=== PATIENT | male | born 1955 | race Caucasian/White ===

== ENCOUNTER 2019-08-28 12:25 | Day surgery (SDC) | payer MEDICARE ==
[2019-08-28] MEDS ORDERED: Lidocaine 1% PF 5 ML VIAL ONE (12:50)
[2019-08-28] MEDS ORDERED: Sodium Bicarbonate 2.5 MEQ/5 ML VIAL ONE (12:50)
--- NOTE | 2019-08-28 16:08 | ULT ---
Exam: Ultrasound guided fine-needle aspiration of the thyroid gland COMPARISON: 08/01/2019 FINDINGS: Successful ultrasound-guided fine-needle aspiration of the left thyroid lobe. Total 4 fine-needle asp iration was performed with a 25-gauge needle. No immediate or postprocedure complications TECHNIQUE: Consent obtained to perform a left thyroid lobe fine-needle aspiration. A solid nodule in the left thyroid lobe measuring 2.0 x 1.8 x 1.9 cm redemonstrated. Patient's neck was prepped and draped in sterile fashion. 1% lidocaine, buffered with sodium bicarbonate was used for local anesthes ia. Under sonographic guidance, a 22-gauge spinal needle was advanced into the left thyroid lobe. Total of four 25-gauge fine-needle aspirations were performed. Patient tolerated the procedure well. No immediate or postprocedure complications IMPRESSION: Successful fine-needle aspiration of a solid nodule in the left thyroid lobe. Transcribed Date/Time: 08/28/2019 4:11 PM
[2019-08-28 17:36] VITALS: TEMP 98.2
[2019-08-28 17:37] VITALS: BP 123/81
== END 2019-08-28 13:55 | disposition home or self-care (01) ==
LOC: ULT 12:25
PROVIDERS: ATTEND Student in an Organized Health Care Education/Training Program
PROC: 0GBG3ZX Excision of Left Thyroid Gland Lobe, Percutaneous Approach, Diagnostic (ICD-10-PCS; principal; 2019-08-28)
DX: E04.1 Nontoxic single thyroid nodule (principal); I10 Essential (primary) hypertension; K21.9 Gastro-esophageal reflux disease without esophagitis
CPT/HCPCS: 60100; 76942; 88173; J2001